=== PATIENT | female | born 1980 | race Caucasian/White ===

== ENCOUNTER → 2020-01-05 11:23 | Outpatient (BNVA) | payer OTHER, MEDICAID, SELFPAY | PROVIDERS: Family Provider Internal Medicine; PCP Internal Medicine; Visit Provider Nurse Practitioner Family | DX: J01.00 Acute maxillary sinusitis, unspecified (principal); J02.0 Streptococcal pharyngitis | CPT/HCPCS: 87400; 87880 ==

== ENCOUNTER 2020-02-10 13:30 | Outpatient (CLI) | payer OTHER, MEDICAID, SELFPAY ==
--- NOTE | 2020-02-10 13:45 | XR_ITS ---
WS: [id number] ANKLE RIGHT TECHNIQUE: 3 views of the right ankle CLINICAL INFORMATION: RIGHT ANKLE PAIN COMPARISON: None. FINDINGS: Normal ankle mortise. Talar dome is normal. No visualized fractures. Normal medial and lateral malleo lenny. Moderate diffuse soft tissue edema. XR/XR ankle RT min 3V* [id number] IMPRESSION: Moderate diffuse soft tissue edema. Right ankle otherwise unremarkable. No acut e fractures.
== END 2020-02-10 13:31 | disposition home or self-care (01) ==
LOC: RADWPI 13:34
PROVIDERS: Family Provider Internal Medicine; PCP Internal Medicine; Visit Provider Nurse Practitioner Family
DX: M25.571 Pain in right ankle and joints of right foot (principal); R60.9 Edema, unspecified
CPT/HCPCS: 73610

== ENCOUNTER → 2020-07-27 13:47 | Outpatient (BNVA) | payer MEDICAID, SELFPAY | PROVIDERS: Family Provider Internal Medicine; PCP Internal Medicine; Referring Provider Internal Medicine; Visit Provider Internal Medicine | DX: E10.59 Type 1 diabetes mellitus with other circulatory complications (principal); E78.5 Hyperlipidemia, unspecified; E10.649 Type 1 diabetes mellitus with hypoglycemia without coma; E10.65 Type 1 diabetes mellitus with hyperglycemia | CPT/HCPCS: 99205 ==

== ENCOUNTER 2020-10-13 08:59 | Outpatient (CLI) | payer MEDICAID, SELFPAY ==
--- NOTE | 2020-10-13 09:02 | MM_ITS ---
WS: [id number] Exam: [place] [id number] Date/Time of Exam: 10/13/2020 9:03 AM Reason For Exam: SCREENING VIEWS: MLO and CC views both breasts. Comparison made with prior exam of 01/02/2018. Findings: There was no sign of mass, architectural distortion or suspicious calcification in either breast. Sc attered fibroglandular densities MM/[place] [id number] Impression: BI-RADS: 2-Benign FOLLOW-UP: 1 Year Follow-up This mammogram was also analyzed by the Computer Aided Detection System R2 Imag e Dirt Bike Mechanic.
== END 2020-10-13 09:00 | disposition home or self-care (01) ==
LOC: RADSHAW 09:01
PROVIDERS: PCP Internal Medicine; Visit Provider Internal Medicine
DX: Z12.31 Encounter for screening mammogram for malignant neoplasm of breast (principal)
CPT/HCPCS: 77067

== ENCOUNTER → 2020-10-21 13:50 | Outpatient (BNVA) | payer MEDICAID, SELFPAY | PROVIDERS: PCP Internal Medicine; Visit Provider Internal Medicine | DX: E10.59 Type 1 diabetes mellitus with other circulatory complications (principal); E10.649 Type 1 diabetes mellitus with hypoglycemia without coma; E10.65 Type 1 diabetes mellitus with hyperglycemia; E78.5 Hyperlipidemia, unspecified | CPT/HCPCS: 99214 ==

== ENCOUNTER → 2021-01-18 13:43 | Outpatient (BNVA) | payer MEDICAID, SELFPAY | PROVIDERS: PCP Internal Medicine; Visit Provider Internal Medicine | DX: E10.59 Type 1 diabetes mellitus with other circulatory complications (principal); I25.10 Atherosclerotic heart disease of native coronary artery without angina pectoris; E10.649 Type 1 diabetes mellitus with hypoglycemia without coma; E10.65 Type 1 diabetes mellitus with hyperglycemia; E78.5 Hyperlipidemia, unspecified | CPT/HCPCS: 99214 ==

== ENCOUNTER → 2021-08-24 13:57 | Outpatient (BNVA) | payer MEDICAID, SELFPAY | PROVIDERS: PCP Internal Medicine; Visit Provider Internal Medicine | DX: E10.65 Type 1 diabetes mellitus with hyperglycemia (principal); E10.59 Type 1 diabetes mellitus with other circulatory complications; E10.649 Type 1 diabetes mellitus with hypoglycemia without coma; E78.5 Hyperlipidemia, unspecified; I25.10 Atherosclerotic heart disease of native coronary artery without angina pectoris; Z79.4 Long term (current) use of insulin; Z87.891 Personal history of nicotine dependence | CPT/HCPCS: 99214 ==

== ENCOUNTER → 2021-12-01 14:12 | Outpatient (BNVA) | payer MEDICAID, SELFPAY | PROVIDERS: PCP Internal Medicine; Visit Provider Internal Medicine | DX: E10.65 Type 1 diabetes mellitus with hyperglycemia (principal); E10.59 Type 1 diabetes mellitus with other circulatory complications; E10.649 Type 1 diabetes mellitus with hypoglycemia without coma; E78.5 Hyperlipidemia, unspecified; Z79.4 Long term (current) use of insulin; Z87.891 Personal history of nicotine dependence | CPT/HCPCS: 99214 ==

== ENCOUNTER → 2022-02-06 14:20 | Outpatient (BNVA) | payer MEDICAID, SELFPAY | PROVIDERS: PCP Internal Medicine; Visit Provider Internal Medicine | DX: E10.649 Type 1 diabetes mellitus with hypoglycemia without coma (principal); E10.59 Type 1 diabetes mellitus with other circulatory complications; E10.65 Type 1 diabetes mellitus with hyperglycemia; I25.10 Atherosclerotic heart disease of native coronary artery without angina pectoris; E78.5 Hyperlipidemia, unspecified; Z79.4 Long term (current) use of insulin; Z87.891 Personal history of nicotine dependence | CPT/HCPCS: 99214 ==

== ENCOUNTER → 2022-06-29 12:54 | Outpatient (BNVA) | payer MEDICAID, SELFPAY | PROVIDERS: PCP Internal Medicine; Referring Provider Internal Medicine; Visit Provider Specialist | DX: G56.02 Carpal tunnel syndrome, left upper limb (principal); G56.22 Lesion of ulnar nerve, left upper limb | CPT/HCPCS: 95908; 95910 ==

== ENCOUNTER 2022-07-17 15:05 | Outpatient (CLI) | payer MEDICAID, SELFPAY ==
--- NOTE | 2022-07-17 15:13 | MM_ITS ---
WS: [id number] BILATERAL 3D TOMOSYNTHESIS DIGITAL SCREENING MAMMOGRAPHY WITH CAD CLINICAL INFORMATION: SCREENING HISTORY: Screening mammogram. No current complaints. COMPARISON: October 13, 2020 TECHNIQUE: Bilateral CC and MLO views. FINDINGS: Scattered fibroglandular densities bilaterally. No suspicious focal mass, asymmetry, calcifications, or architectural distortion. No evidence of malignancy. MM/[place] [id number] IMPRESSION: BI-RADS: 1-Negative FOLLOW UP: 1 Year Follow-up Recommend return to annual screening mammography.
== END 2022-07-17 15:06 | disposition home or self-care (01) ==
LOC: RAD 15:06
PROVIDERS: PCP Internal Medicine; Visit Provider Internal Medicine
DX: Z12.31 Encounter for screening mammogram for malignant neoplasm of breast (principal)
CPT/HCPCS: 77063; 77067

== ENCOUNTER → 2022-08-03 11:28 | Outpatient (BNVA) | payer MEDICAID, SELFPAY | PROVIDERS: PCP Internal Medicine; Referring Provider Internal Medicine; Visit Provider Specialist | DX: G58.7 Mononeuritis multiplex (principal); G56.22 Lesion of ulnar nerve, left upper limb; G56.02 Carpal tunnel syndrome, left upper limb; E10.41 Type 1 diabetes mellitus with diabetic mononeuropathy; Z79.4 Long term (current) use of insulin | CPT/HCPCS: 95860; 99204 ==

== ENCOUNTER 2022-08-10 13:28 | Outpatient (CLI) | payer MEDICAID, SELFPAY ==
--- NOTE | 2022-08-10 13:38 | MR_ITS ---
WS: [id number] MRI CERVICAL SPINE NONCONTRAST TECHNIQUE: Sagittal T1, T2 and STIR imaging. Axial T2, gradient, and fiesta imaging. CLINICAL INFORMATION: HAND WEAKNESS, LEFT COMPARISON: None. FINDINGS: Straightening of the normal cervical lordosis. Mild disc bulging C4-C5, C5-C6, and C6-C7. Cord signal is normal. Small central protrusion upper thoracic spine at T1-T2. C2-C3: Normal. C3-C4: No significant disc bulging. Mild facet arthropathy. Spinal canal and foramen are patent. C4-C5: Mild disc osteophyte complex with endplate ridging. Mild facet arthropathy. Mild LEFT and no s ignificant RIGHT foraminal narrowing. C5-C6: Central LEFT pericentral disc osteophyte protrusion. Indentation LEFT ventral cervical cord wi th mild to moderate central canal stenosis. Moderate LEFT bony foraminal narrowing. RIGHT foramen is patent. Moderate facet arthropathy. C6-C7: Shallow central protrusion with slight contact of the cervical cord. Mild central canal stenos is. Moderate LEFT foraminal narrowing. Mild facet arthropathy. C7-T1: Osteophytic ridging with mild LEFT bony foraminal narrowing. Spinal canal is patent. T1-T2: Tiny LEFT pericentral protrusion. Spinal canal is patent. Mild LEFT bony foraminal narrowing. Visualized brain stem structures: Normal. Prevertebral soft tissues: Normal. MR/MR cervical spin wo con* [id number] IMPRESSION: 1. Straightening of the normal cervical lordosis. Cord signal is normal. 2. LEFT pericentral disc osteophyte protrusion C5-C6 with indentation LEFT nicko tral cervical cord. Mild to moderate central canal stenosis at this level. 3. Moderate LEFT C5-C6 bony foraminal narrowing with encroachment on the exiti ng LEFT C6 nerve root. 4. Shallow central protrusion C6-C7 with mild central canal stenosis and sligh t contact of the cervical cord. Moderate LEFT C6-C7 bony foraminal narrowing. 5. Moderate facet arthropathy C4-C5 C5-C6.
== END 2022-08-10 13:29 | disposition home or self-care (01) ==
LOC: RAD 13:29
PROVIDERS: PCP Internal Medicine; Visit Provider Internal Medicine
DX: R29.898 Other symptoms and signs involving the musculoskeletal system (principal); M47.812 Spondylosis without myelopathy or radiculopathy, cervical region; M50.223 Other cervical disc displacement at C6-C7 level; M25.78 Osteophyte, vertebrae
CPT/HCPCS: 72141

== ENCOUNTER 2022-08-21 15:43 | Outpatient (CLI) | payer MEDICAID, SELFPAY ==
--- NOTE | 2022-08-21 15:53 | XR_ITS ---
WS: [id number] Chest 2 views, 08/21/2022 Clinical Data: PNEUMONIA,BACTERIAL Comparison: Portable chest, 08/23/2018. Findings: No nodules, masses or effusions are seen. The heart is normal. The pulmonary vascularity is not increased. No pneumonia or pneumothorax is seen. XR/XR chest 2V* [id number] Impression: Negative chest.
== END 2022-08-21 15:44 | disposition home or self-care (01) ==
PROVIDERS: PCP Internal Medicine; Visit Provider Internal Medicine
DX: J15.9 Unspecified bacterial pneumonia (principal)
CPT/HCPCS: 71046

== ENCOUNTER → 2022-09-14 08:47 | Outpatient (BNVA) | payer MEDICAID, SELFPAY | PROVIDERS: PCP Internal Medicine; Referring Provider Specialist; Visit Provider Specialist | DX: G56.01 Carpal tunnel syndrome, right upper limb (principal) | CPT/HCPCS: 95908; 95909 ==

== ENCOUNTER 2022-10-19 15:04 | Outpatient (CLI) | payer MEDICAID, SELFPAY ==
--- NOTE | 2022-10-19 | MR_ITS ---
WS: [id number] MRI THORACIC SPINE WITHOUT CONTRAST TECHNIQUE: Sagittal T1, T2 and STIR imaging. Axial T2 imaging. Noncontrast imaging obtained. CLINICAL INFORMATION: BACK PAIN COMPARISON: None. FINDINGS: Mild thoracic kyphosis. No acute compression. No high-grade central canal stenosis. Tiny central prot rusions in the upper thoracic spine T3-T4, T4-T5, T6-T7 and T7-T8. No significant central canal steno sis. Mild facet arthropathy in the lower thoracic spine. Adrenal glands are normal. Normal caliber thoracic aorta. Normal paravertebral soft tissues. MR/MR thoracic spin wo con* [id number] IMPRESSION: 1. Mild thoracic kyphosis. No acute compression. No high-grade central canal s tenosis. 2. Cord signal is normal. 3. Small shallow disc protrusions in the upper thoracic spine with slight effa cement of ventral thecal sac. No significant central canal stenosis. This is mo st prominent at T3-T4, T4-T5, T6-T7 and T7-T8 4. Mild facet arthropathy lower thoracic spine. 5. No other acute findings.
== END 2022-10-19 15:05 | disposition home or self-care (01) ==
LOC: RAD 15:08
PROVIDERS: PCP Internal Medicine; Visit Provider Internal Medicine
DX: R29.898 Other symptoms and signs involving the musculoskeletal system (principal); M51.24 Other intervertebral disc displacement, thoracic region; M47.814 Spondylosis without myelopathy or radiculopathy, thoracic region
CPT/HCPCS: 72146

== ENCOUNTER → 2022-12-14 13:56 | Outpatient (BNVA) | payer MEDICAID, SELFPAY | PROVIDERS: PCP Internal Medicine; Visit Provider Internal Medicine | DX: E10.59 Type 1 diabetes mellitus with other circulatory complications (principal); E10.65 Type 1 diabetes mellitus with hyperglycemia; E10.649 Type 1 diabetes mellitus with hypoglycemia without coma; E78.5 Hyperlipidemia, unspecified; Z79.4 Long term (current) use of insulin | CPT/HCPCS: 99214 ==

== ENCOUNTER → 2022-12-19 13:01 | Outpatient (BNVA) | payer MEDICAID, SELFPAY | PROVIDERS: PCP Internal Medicine; Visit Provider Internal Medicine Cardiovascular Disease | DX: I25.10 Atherosclerotic heart disease of native coronary artery without angina pectoris (principal); E10.59 Type 1 diabetes mellitus with other circulatory complications; M32.9 Systemic lupus erythematosus, unspecified; E78.5 Hyperlipidemia, unspecified; I25.2 Old myocardial infarction; Z79.82 Long term (current) use of aspirin | CPT/HCPCS: 99214 ==

== ENCOUNTER 2023-01-26 06:59 | Outpatient (CLI) | payer MEDICAID, SELFPAY ==
--- NOTE | 2023-01-26 | ECG_ITS ---
[facility] Test Date: 2023-01-26 Pat Name: Christen French Department: Room: Gender: Female Print Finisher: : 1980 Requested By: Sridhar Orosco Order Number: [id number] Navneet MD: Kyle Duran M.D. Interpretive Statements NAME OF STUDY: LEXISCAN SESTAMIBI STRESS TEST INDICATION: [Chest Pain, hx of mi, ] Procedure: At the baseline, the blood pressure was 107/81 mmHg with a heart rate of 64 bpm. The electrocardiogram showed normal sinus rhythm, normal axis with normal ST and T's. The Lexiscan was infused over a period of 20 seconds. A total of 0.4 mg of Lexiscan was infused. The stress phase was continued for a total of 5 minutes. Heart rate was at the end of stress phase was 88 bpm and a blood pressure of 123/83 mmHg. The EKG at the peak infusion revealed normal sinus rhythm with no significant ST-T wave changes. Sestamibi was injected 20 seconds after the Lexiscan infusion. Blood pressure at the end of recovery phase was 141/74 mmHg with a heart rate of 88 bpm. Conclusion: 1. Normal EKG response to Lexiscan infusion 2. No Lexiscan induced chest pain or cardiac arrhythmia. 3. Normal blood pressure and heart rate response. 4. Sestamibi/sestamibi perfusion scan pending; see separate report. Electronically Signed On 01-27-2023 13:09:28 CDT by Kyle Duran M.D. [id number]
[2023-01-26 07:27] VITALS: BMI 33.3
--- NOTE | 2023-01-26 07:30 | NMCV_ITS ---
NM irma perf SPECT r/s* [id number] Christen French Age: 42 Gender: F : 1980 Exam Date: 01/26/2023 07:40 Ordering Phys: Sridhar Orosco MD ([email or web address]) Technologist: SALLY Gary Exam Location: [facility] Indications: Chest pain STRESS TEST Please see separate stress test report in [facility] for full findings IMAGE PROTOCOL Rest/Stress 1 Lexiscan Day Radiopharmaceutical Dose (mCi) Administration Site Administered by Rest: Tc-99m 10.8 IV SALLY Gary Sestamibi Stress:Tc-99m 32.9 IV SALLY Gary Sestamirenee Rest: 26-Jan-2023 60 Discovery 630 Stress: 26-Jan-2023 30 Discovery 630 0.4mg Lexiscan. Images obtained in supine and prone position. SPECT RESULTS Technical Quality: Good Raw Data Analysis: Breast attenuation, Adequate Image Corrections: No attenuation or motion correction applied Summed Stress Score: 0 Summed Rest Score: 0 Summed Difference Score: 0 PERFUSION FINDINGS SPECT images demonstrate homogeneous tracer distribution throughout the myocardium. FUNCTIONAL RESULTS (calculated via Gated SPECT) Stress Image LV EF (%): 77 Stress EDV (mL):73 TID: 1.07 Stress ESV (mL):17 FUNCTIONAL FINDINGS: There is normal left ventricular systolic function. IMPRESSIONS 1. Normal myocardial perfusion imaging with no evidence of ischemia. 2. LV systolic function is normal. Kyle Duran MD (Electronically Signed) Final Date: 26 January 2023 10:05 S
[2023-01-26] MEDS: regadenoson 0.4 Mg/5 ml Syringe IVP (08:40)
[2023-01-26 10:18] VITALS: BP 123/82; PULSE 79
== END 2023-01-26 07:00 | disposition home or self-care (01) ==
LOC: CDL 07:00
PROVIDERS: PCP Internal Medicine; Visit Provider Internal Medicine Cardiovascular Disease
DX: I25.10 Atherosclerotic heart disease of native coronary artery without angina pectoris (principal)
CPT/HCPCS: 36415; 78452; 93017; 96374; A9500; J2785

== ENCOUNTER 2023-07-26 14:16 | Outpatient (CLI) | payer MEDICAID, SELFPAY ==
--- NOTE | 2023-07-26 14:30 | MM_ITS ---
WS: [id number] SCREENING DIGITAL TOMOSYNTHESIS MAMMOGRAM WITH CAD HISTORY: SCREENING COMPARISON: 07/17/2022 and 10/13/2020 Bilateral CC and MLO with tomosynthesis views submitted. Synthetic mammography reviewed. Computer aid ed detection analyzed. Breast composition: There are scattered areas of fibroglandular density. No suspicious masses, microc alcifications or architectural distortion. IMPRESSION: MM/[place] [id number] BI-RADS: 1-Negative FOLLOW UP: 1 Year Follow-up
== END 2023-07-26 14:17 | disposition home or self-care (01) ==
LOC: MOBLMAM 14:19
PROVIDERS: PCP Internal Medicine; Visit Provider Internal Medicine
DX: Z12.31 Encounter for screening mammogram for malignant neoplasm of breast (principal)
CPT/HCPCS: 77063; 77067

== ENCOUNTER 2024-07-31 14:21 | Outpatient (CLI) | payer MEDICAID, SELFPAY ==
--- NOTE | 2024-07-31 14:20 | MM_ITS ---
WS: [id number] SCREENING DIGITAL TOMOSYNTHESIS MAMMOGRAM WITH CAD HISTORY: SCREENING COMPARISON: 07/26/2023, 07/17/2022 and 10/13/2020 Bilateral CC and MLO with tomosynthesis views submitted. Synthetic mammography reviewed. Computer aid ed detection analyzed. Breast composition: There are scattered areas of fibroglandular density. No suspicious masses, microc alcifications or architectural distortion. MM/MM scr BI tomosynthesis [id number] IMPRESSION: BI-RADS: 1 - Negative. FOLLOW UP: 1 Year Follow-up
== END 2024-07-31 14:22 | disposition home or self-care (01) ==
LOC: MOBLMAM 14:22
PROVIDERS: PCP Internal Medicine; Visit Provider Internal Medicine
DX: Z12.31 Encounter for screening mammogram for malignant neoplasm of breast (principal); R92.323 Mammographic fibroglandular density, bilateral breasts
CPT/HCPCS: 77063; 77067

== ENCOUNTER 2024-08-14 14:56 | Outpatient (CLI) | payer MEDICAID, SELFPAY ==
--- NOTE | 2024-08-14 15:05 | MR_ITS ---
WS: [id number] MRI CERVICAL SPINE NONCONTRAST TECHNIQUE: Sagittal T1, T2 and STIR imaging. Axial T2, gradient, and fiesta imaging. CLINICAL INFORMATION: DEGENERATIVE DISC DISEASE COMPARISON: MRI 2021 FINDINGS: Straightening of the normal cervical lordosis. Shallow central protrusions C4-C5 C5-C6 and C6-C7. Mil d central canal stenosis at C4-C5. Mild to moderate central canal stenosis C5-C6 and mild C6-C7 with slight indentation on the cervical cord. C2-C3: Normal. C3-C4: Mild facet arthropathy. Spinal canal and foramen are patent. C4-C5: Disc osteophyte complex with endplate ridging. Mild bilateral bony foraminal narrowing. Mild f acet arthropathy. Mild central canal stenosis appears unchanged compared to previous C5-C6: Central and LEFT paracentral disc protrusion with indentation of the cervical cord. Disc has i nvoluted somewhat compared to previous. Moderate LEFT greater than RIGHT bony foraminal narrowing. Mi ld facet arthropathy. C6-C7: Shallow central disc protrusion with mild central canal stenosis is stable. Moderate LEFT bony foraminal narrowing. C7-T1: Spinal canal and foramen are patent. Partially visualized LEFT paracentral protrusion T1-T2 appears stable. Shallow central protrusions a t T2-3 and T3-4. Visualized brain stem structures: Normal. Prevertebral soft tissues: Normal. MR/MR cervical spin wo con* [id number] IMPRESSION: 1. Mild central canal stenosis C4-5 appears stable. 2. Central and LEFT paracentral disc protrusion C5-C6 has involuted slightly c ompared to previous with persistent mild to moderate central canal stenosis. 3. Mild central canal stenosis C6-C7 with a shallow central protrusion is stab le. 4. Cord signal is normal. 5. Moderate bilateral bony foraminal narrowing C5-C6 and LEFT C6-C7.
== END 2024-08-14 14:57 | disposition home or self-care (01) ==
LOC: RAD 14:57
PROVIDERS: PCP Internal Medicine; Visit Provider Internal Medicine
DX: M50.30 Other cervical disc degeneration, unspecified cervical region (principal); M25.78 Osteophyte, vertebrae; M50.20 Other cervical disc displacement, unspecified cervical region; M99.61 Osseous and subluxation stenosis of intervertebral foramina of cervical region
CPT/HCPCS: 72141

== ENCOUNTER 2024-09-19 07:23 | Outpatient (CLI) | payer OTHER, MEDICAID, SELFPAY ==
[2024-09-19 08:06] VITALS: BMI 34.3
--- NOTE | 2024-09-19 08:12 | ECG_ITS ---
[facility] Test Date: 2024-09-19 Pat Name: Christen French Department: Room: Gender: Female Appliquer: : 1980 Requested By: Cesia Oglesby Order Number: [id number] Navneet MD: Kyle Duran M.D. Interpretive Statements LEXISCAN SESTAMIBI STRESS TEST Procedure: At the baseline, the blood pressure was 103/70 mmHg with a heart rate of 71 bpm. The electrocardiogram showed normal sinus rhythm, normal axis with normal ST and T's. The Lexiscan was infused over a period of 20 seconds. A total of 0.4 mg of Lexiscan was infused. The stress phase was continued for a total of 5 minutes. Heart rate was at the end of stress phase was 89 bpm and a blood pressure of 101/66 mmHg. The EKG at the peak infusion revealed normal sinus rhythm with no significant ST-T wave changes. Sestamibi was injected 20 seconds after the Lexiscan infusion. Blood pressure at the end of recovery phase was 104/64 mmHg with a heart rate of 86 bpm. Conclusion: 1. Normal EKG response to Lexiscan infusion 2. No Lexiscan induced chest pain or cardiac arrhythmia. 3. Normal blood pressure and heart rate response. 4. Sestamibi/sestamibi perfusion scan pending; see separate report. Electronically Signed On 09-22-2024 11:58:14 LABORATORY ANIMAL CARE VETERINARIAN by Kyle Duran M.D. [id number]
--- NOTE | 2024-09-19 08:12 | NMCV_ITS ---
NM irma perf SPECT r/s* [id number] Christen French Age: 44 Gender: F : 1980 Exam Date: 09/19/2024 08:50 Ordering Phys: Cesia Rucker MD Technologist: SALLY Chong Exam Location: [facility] Indications: CP STRESS TEST [facility] IMAGE PROTOCOL Rest/Stress 1 Lexiscan Day Radiopharmaceutical Dose (mCi) Administration Site Administered by Rest: Tc-99m 10.8 IV Ailyn Pardo, SENIOR TELLER Sestamibi Stress:Tc-99m 32.9 IV Ailyn Ortizgle, SENIOR TELLER Sestamibi Rest: 19-Sep-2024 60 Discovery 630 Stress: 19-Sep-2024 30 Discovery 630 0.4mg Lexiscan. Images obtained in supine and prone position. SPECT RESULTS Technical Quality: Good Raw Data Analysis: Normal Image Corrections: No attenuation or motion correction applied Summed Stress Score: 0 Summed Rest Score: 0 Summed Difference Score: 0 PERFUSION FINDINGS SPECT images demonstrate homogeneous tracer distribution throughout the myocardium. FUNCTIONAL RESULTS (calculated via Gated SPECT) Stress Image LV EF (%): 77 Stress EDV (mL):73 TID: 0.98 Stress ESV (mL):17 FUNCTIONAL FINDINGS: There is normal left ventricular systolic function. IMPRESSIONS 1. Normal myocardial perfusion imaging with no evidence of ischemia. 2. LV systolic function is normal Kyle Duran MD (Electronically Signed) Final Date: 19 September 2024 10:45 S
[2024-09-19] MEDS: regadenoson 0.4 Mg/5 ml Syringe IVP (09:16)
[2024-09-19 09:57] VITALS: BP 104/54; PULSE 84
== END 2024-09-19 07:24 | disposition home or self-care (01) ==
LOC: CDL 07:24
PROVIDERS: PCP Internal Medicine; Visit Provider Internal Medicine
DX: I25.810 Atherosclerosis of coronary artery bypass graft(s) without angina pectoris (principal)
CPT/HCPCS: 36415; 78452; 93017; 96374; A9500; J2785

== ENCOUNTER 2025-02-10 14:04 | Outpatient (CLI) | payer OTHER, MEDICAID, SELFPAY ==
--- NOTE | 2025-02-10 14:08 | US_ITS ---
WS: [id number] US transvaginal [id number] HISTORY: Menorrhagia COMPARISON: None available. Uterus: 8.4 cm x 5.9 cm x 4.6 cm. Normal size anteverted uterus. No fibroid or mass. Endometrium: 1.4 cm. Endometrium it is measuring top normal size. There is minimal interruption of the junctional zone. No adenomyosis identified. Right ovary: 3.5 cm x 2.7 cm x 2.2 cm. Collapsing corpus luteal cyst associated with the RIGHT ovary. There is a thick-walled complex cyst. Adjacent and inseparable from the ovary is an additional cyst measuring 1.6 x 1.7 x 1.6 cm. This may be a small parovarian cyst. Left ovary: Not identified. No free fluid in the cul-de-sac. US/US transvaginal [id number] IMPRESSION: 1. Endometrium is top normal size at 1.4 cm. No mass or increased vascularity identified. 2. Collapsed corpus luteal cyst associated with the RIGHT ovary. There is an a dditional smaller cyst medial to the ovary which may be a paraovarian cyst. 3. LEFT ovary not identified.
== END 2025-02-10 14:05 | disposition home or self-care (01) ==
LOC: RAD 14:05
PROVIDERS: PCP Internal Medicine; Visit Provider Internal Medicine
DX: N92.0 Excessive and frequent menstruation with regular cycle (principal); N83.11 Corpus luteum cyst of right ovary; N83.201 Unspecified ovarian cyst, right side
CPT/HCPCS: 76830

== ENCOUNTER → 2025-04-01 10:42 | Outpatient (BNVA) | payer OTHER, MEDICAID, SELFPAY | PROVIDERS: PCP Internal Medicine; Visit Provider Nurse Practitioner Women's Health | DX: R10.2 Pelvic and perineal pain (principal) | CPT/HCPCS: 76830 ==

== ENCOUNTER → 2025-04-09 09:13 | Outpatient (BNVA) | payer OTHER, MEDICAID, SELFPAY | PROVIDERS: PCP Internal Medicine; Visit Provider Nurse Practitioner Women's Health | DX: Z01.419 Encounter for gynecological examination (general) (routine) without abnormal findings (principal); R53.83 Other fatigue | CPT/HCPCS: 80053; 82306; 84443; 85025 ==

== ENCOUNTER 2025-07-13 06:04 | Emergency (ER) | payer BC, MEDICAID, SELFPAY ==
[2025-07-13] VITALS (9 sets, daily range): BP systolic 101–131; BP diastolic 75–99; PULSE 60–98; RESP 16–26; TEMP 36.7; O2SAT 95–100; BMI 35.4
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
--- OUTSIDE RECORDS SUMMARY | 2025-07-13 06:08 | XMS_ITS | Clinical Summary ---
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
--- OUTSIDE RECORDS SUMMARY | 2025-07-13 06:08 | XMS_ITS | Clinical Summary ---
Author Organization [facility] Address [address] 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
--- OUTSIDE RECORDS SUMMARY | 2025-07-13 06:08 | XMS_ITS | Encounter Summary ---
Author Organization [facility] Address [address] [place] [address] Care Team Providers Care Decorating Machine Tender Name Role Phone Unavailable Primary Care Provider Unavailabl e Encounter Details Date Type Department Care Team (Late st Contact Info) Description 12/01/2004 Outpatient Historical [facility] Non-Staff, Physician NO ADDRESS ON FILE Social History Tobacco Use Types Packs/Day Years Used Date Smoking Tobacco: Never Assessed Comments Unknown Sex and Gender Information Value Date Recorded Sex Assigned at Not on file Legal Sex Female 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 LIFT MANAGER Gender Identity Not on file Sexual Orientation Not on file documented as of this encounter Plan of Treatment Not on file documented as of this encounter Procedures Procedure Name Priority Date/Time Associated Diagnosis Comments HAPTOGLOBIN Routine 12/01/2004 8:11 AM LIFT MANAGER documented in this encounter Results * HAPTOGLOBIN (12/01/2004 8:11 AM LIFT MANAGER) HAPTOGLOBIN 52.8 30.0 - 200.0 mg/dL INTERFACE SYSTEM 12/01/2004 8:11 AM LIFT MANAGER us Historical Provider CHEMISTRY ORDERABLES Final R esult INTERFACE SYSTEM Refer to clinic/hospital department documented in this encounter Visit Diagnoses Not on filedocumented in this encounter
--- OUTSIDE RECORDS SUMMARY | 2025-07-13 06:09 | XMS_ITS | Encounter Summary ---
Author Organization [facility] Address [address] [place] [address] Care Team Providers Care Medical Communication Specialist Name Role Phone Unavailable Primary Care Provider Unavailabl e Encounter Details Date Type Department Care Team (Late st Contact Info) Description 11/30/2004 Outpatient Historical HIS [facility] Non-Staff, Physician NO ADDRESS ON FILE Social History Tobacco Use Types Packs/Day Years Used Date Smoking Tobacco: Never Assessed Comments Unknown Sex and Gender Information Value Date Recorded Sex Assigned at Not on file Legal 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 DATABASE SPECIALIST Gender Identity Not on file Sexual Orientation Not on file documented as of this encounter Plan of Treatment Not on file documented as of this encounter Procedures Procedure Name Priority Date/Time Associated Diagnosis Comments HAPTOGLOBIN Routine 11/30/2004 8:37 AM INTERNET DATABASE SPECIALIST documented in this encounter Results * (ABNORMAL) HAPTOGLOBIN (11/30/2004 8:37 AM INTERNET DATABASE SPECIALIST) HAPTOGLOBIN 7.2(L) 30.0 - 200.0 mg/dL INTERFACE SYSTEM 11/30/2004 8:37 AM INTERNET DATABASE SPECIALIST us Historical Provider CHEMISTRY ORDERABLES Final R esult INTERFACE SYSTEM Refer to clinic/hospital department documented in this encounter Visit Diagnoses Not on filedocumented in this encounter
--- NOTE | 2025-07-13 06:10 | ECG_ITS ---
[facility] Date: 2025-07-13 Pat Name: Christen French Department: Room: Gender: Female Hole Puncher Strap: : 1980 Requested By: Arnold Esrtella Order Number: [id number] Navneet MD: Min Hernandez M.D. Measurements Intervals [place] Rate: 80 P: 50 NH: 164 QRS: 36 QRSD: 68 T: 51 QT: 355 QTc: 411 Interpretive Statements SINUS RHYTHM LOW QRS VOLTAGE IN PRECORDIAL LEADS [QRS DEFLECTION < 1.0 mV IN CHEST LEADS] SEPTAL MYOCARDIAL INFARCTION , OF INDETERMINATE AGE [40+ ms Q WAVE IN V1/V2] Compared to ECG 01/15/2019 23:32:48 NO SIGNIFICANT CHANGE Electronically Signed On 07-13-2025 12:59:15 CDT by Min Hernandez M.D. [email or web address]
--- NOTE | 2025-07-13 06:16 | XRR_ITS ---
PROCEDURE INFORMATION: Exam: XR Chest Exam date and time: 07/13/2025 6:32 AM Age: 45 years old Clinical indication: Chest pressure and sternal or substernal pain; Prior surgery; Surgery date: 6+ months; Surgery type: Cardiac stents; Additional info: Cp TECHNIQUE: Imaging protocol: Radiologic exam of the chest. Views: 1 view. COMPARISON: CR XR chest 2V* [id number] 08/21/2022 3:54 PM FINDINGS: Lungs: Unremarkable. No consolidation. Pleural spaces: Unremarkable. No pleural effusion. No pneumothorax. Heart/Mediastinum: Unremarkable. No cardiomegaly. Bones/joints: Unremarkable. XR/XR chest 1V portable [id number] IMPRESSION: No acute findings.
--- NOTE | 2025-07-13 06:31 | W.ED.CHESTPA ---
HPI - Chest Pain General: Chief Complaint: Chest Pain Stated Complaint: sob and pressure in the middle of chest lighthead Time Seen by Provider: 07/13/25 06:08 History of Present Illness: 45-year-old female with a known history of coronary disease previous STEMI resulting in a stent in her LAD. She presents emergency room with complaint of chest heaviness and pressure sensation of not being able to take a full breath that began yesterday she took 1 nitro she was able to sleep but still had that sensation this morning she also noticed when she stands she is lightheaded and dizzy. She is a former smoker and she is also an insulin-dependent diabetic. Her STEMI was in August 2018. At the time of the heart cath in August 2018 her left main circumflex and RCA all had no sign of disease there was single-vessel disease in the proximal LAD which was stented. Since that time she has had Lexiscan sestamibi stress test in December and September 2024 that were normal. Prior to chest discomfort she reported yesterday she is intermittently had chest pain over the last several years had a stress test to evaluate at that time but more recently has not had other episodes of chest pain has not been using nitro on any other occasions. Associated symptoms: Reports dyspnea; Deny abdominal pain or fever(s) Related Data Home Medications ?Medication ?Instructions ?Recorded ?Confirmed pantoprazole 20 mg tablet,delayed 20 mg PO DAILY 01/05/20 07/13/25 release (Protonix) flash glucose sensor (FreeStyle 02/06/22 07/13/25 Brian 2 Sensor kit) cetirizine 10 mg tablet 10 mg PO DAILY 12/19/22 07/13/25 furosemide 40 mg tablet 40 mg PO DAILY PRN edema 12/19/22 07/13/25 insulin degludec 100 unit/mL (3 28 unit SUBCUT QAM 12/19/22 07/13/25 mL) subcutaneous pen (Tresiba FlexTouch U-100 insulin) magnesium oxide 400 mg PO DAILY 12/19/22 07/13/25 aspirin 81 mg tablet,delayed 81 mg PO DAILY 07/13/25 07/13/25 release rosuvastatin 20 mg tablet 20 mg PO DAILY 07/13/25 07/13/25 Previous Rx's ?Medication ?Instructions ?Recorded nitroglycerin 0.4 mg sublingual 0.4 mg sublingual Q5M PRN chest 11/09/21 tablet (Nitrostat) pain #30 tabs Humalog U-100 Insulin 100 unit/mL See Rx Instructions SUBCUT TID 90 06/01/22 subcutaneous solution (insulin days #90 mL lispro) metoprolol tartrate 25 mg tablet 6.25 mg (1/4 x 25 mg) PO BID #45 05/30/23 tabs Allergies Allergy/AdvReac Type Severity Reaction Status Date / Time lovastatin Allergy Unknown Verified 04/09/25 07:47 Review of Systems Const: Denies: fever(s) or chills Card: Reports: chest pain Resp: Reports: dyspnea GI: Denies: abdominal pain : Denies: dysuria, urinary frequency or urinary urgency Musc: Denies: neck pain or back pain Skin/Breast: Denies: rash PFSH ED PFSH: Medical History delivery delivered CAD (coronary artery disease), [place] coronary artery STEMI (ST elevation myocardial infarction) Lupus Diabetes Dyslipidemia Surgical History H/O heart artery stent Family History Father COPD (chronic obstructive pulmonary disease) Congestive heart failure (CHF) Mother Cancer stomach/intestine, lung, liver, spine Breast cancer Colon cancer Uterine cancer Stroke Hypertension Ovarian cancer Diabetes Denies family history of Heart disease Thyroid disease Social History Smoking and tobacco/nicotine status: former use of tobacco/nicotine Alcohol intake: never Substance/Drug Use: never Physical Exam Const: GENERAL APPEARANCE: cooperative ORIENTATION/CONSCIOUSNESS: Yes awake, Yes oriented to person, Yes oriented to place and Yes oriented to time HENMT: COMMON NORMALS: normocephalic, atraumatic and hearing grossly normal bilaterally HEAD & SCALP: normocephalic and atraumatic Resp: COMMON NORMALS: normal respiratory effort, No retractions, No use of accessory muscles and clear to auscultation bilaterally AUSCULTATION: clear to auscultation bilaterally Cardio: COMMON NORMALS: regular rate, regular rhythm and No murmurs present (Cardio) RATE: regular rate RHYTHM: regular rhythm GI: COMMON NORMALS: Soft to palpation and No hepatosplenomegaly present AUSCULTATION: Yes normoactive bowel sounds PALPATION: Yes Soft to palpation, No Tenderness to palpation present (GI), No Guarding due to palpation present (GI) and Yes No hepatosplenomegaly present Extremity: COMMON NORMALS: normal to inspection, capillary refill normal, no clubbing, cyanosis or edema, no calf tenderness and no pedal edema Neuro: SENSORIUM/ORIENTATION: Yes oriented to person, Yes oriented to place and Yes oriented to time Skin: COMMON NORMALS: no rashes or lesions noted GENERAL SKIN EXAM: no rashes or lesions noted Course Vital Signs: Vital signs: Vital Signs Temperature 98.1 F 07/13/25 06:07 Pulse Rate 68 07/13/25 09:41 Respiratory Rate 18 07/13/25 09:41 Blood Pressure 112/78 07/13/25 09:41 Pulse Oximetry 97 07/13/25 09:41 Oxygen Delivery Me thod Room Air 07/13/25 06:07 MDM - Chest Pain Medical Decision Making Cardiac enzymes unremarkable EKG did not show any acute changes. Cardiac stress test on January 2023 and another on September 2024 were both negative. Previous angiography report reviewed had single-vessel disease which was stented all of the vessels were normal. No further chest pain at this time will discharge home follow-up with cardiology Medical Records I reviewed the patient's medical records. Lab Data I reviewed the patient's lab results. 07/13/25 06:27 07/13/25 06:27 Radiology Impressions Chest X-Ray 07/13/25 06:16 IMPRESSION: No acute findings. Laboratory Results WBC 10.31 10^3/uL (3.29-11.43) 07/13/25 06:27 RBC 4.28 10^6/uL (3.85-5.65) 07/13/25 06:27 Hgb 12.90 g/dL (11.27-16.99) 07/13/25 06:27 Hct 37.5 % (36-47) 07/13/25 06:27 MCV 87.6 fl (85-98) 07/13/25 06:27 MCH 30.1 pg (27-33) 07/13/25 06:27 MCHC 34.4 g/dL (30-55) 07/13/25 06: RDW 12.1 % (12.1-15.1) 07/13/25 06:27 Plt Count 353 10^3/cmm (157-399) 07/13/25 06:27 MPV 10.8 fL (7.4-10.4) H 07/13/25 06:27 Neut % (Auto) 63.2 % 07/13/25 06: Lymph % (Auto) 27.1 % 07/13/25 06:27 Dane % (Auto) 8.5 % 07/13/25 06:27 Eos % (Auto) 0.7 % 07/13/25 06: Baso % (Auto) 0.3 % 07/13/25 06: Neut # (Auto) 6.52 10^3/uL (1.8-7.7) 07/13/25 06:27 Lymph # (Auto) 2.8 10^3/uL (0.8-4.8) 07/13/25 06:27 Dane # (Auto) 0.9 10^3/uL (0.2-0.9) 07/13/25 06:27 Eos # (Auto) 0.1 10^3/uL (0.0-0.8) 07/13/25 06:27 Baso # (Auto) 0.0 10^3/uL (0.0-0.1) 07/13/25 06:27 Nucleated RBC % (auto) 0 % 07/13/25 06: Nucleated RBCs # 0.0 /100WBC 07/13/25 06:27 Sodium 134 mmol/L (136-145) L 07/13/25 06:27 Potassium 4.6 mmol/L (3.5-5.1) 07/13/25 06:27 Chloride 98 mmol/L (98-107) 07/13/25 06:27 Carbon Dioxide 20 mmol/L (22-29) L 07/13/25 06:27 Anion Gap 20.6 (5-19) H 07/13/25 06:27 BUN 17 mg/dL (6-20) 07/13/25 06:27 Creatinine 0.9 mg/dL (0.5-0.9) 07/13/25 06:27 GFR Calculation 67.7 mL/min (90-130) L 07/13/25 06:27 Glucose 288 mg/dL (65-115) H 07/13/25 06:27 Calculated Osmolality 290 mOsm/kg (285-295) 07/13/25 06:27 Calcium 9.4 mg/dL (8.5-10.5) 07/13/25 06:27 Total Bilirubin 0.3 mg/dL (0.15-1.2) 07/13/25 06:27 AST 28 U/L (0-32) 07/13/25 06:27 ALT 26 U/L (0-33) 07/13/25 06:27 Alkaline Phosphatase 83 U/L (35-105) 07/13/25 06:27 Troponin T Baseline < 6 ng/L (0-10) 07/13/25 06:27 Troponin T 120 Minute 7.35 ng/L (0-10) 07/13/25 08:14 Delta Troponin T 1.91920 ABS# (0-10) 07/13/25 08:14 NT-Pro-B Natriuret Pep < 36 pg/mL (0-125) 07/13/25 06:27 Total Protein 8.2 g/dL (6.6-8.7) 07/13/25 06:27 Albumin 4.2 g/dL (3.5-5.2) 07/13/25 06:27 Globulin 4.0 g/dL (1.3-4.6) 07/13/25 06:27 HCG, Qual Negative (Negative) 07/13/25 06:27 All radiology interpretation(s) finalized by discharge EKG Data EKG 1: Interpretation: EKG 07/13/2025 6:10 AM sinus rhythm rate of 80 VT interval 164 QTc [address] elevation no ST depression or T wave inversion. Q waves in V1 and 2. Compared to EKG 01/15/2019 no significant change EKG 2: Interpretation: EKG 07/13/2025 sinus rhythm rate of 71 VT interval 159 QTc [address] changes noted. Compared to EKG done earlier today no significant change Discharge Plan Discharge Patient Disposition: Home Clinical Impression: Atypical chest pain Condition: Stable Prescriptions: No Action nitroglycerin [Nitrostat] 0.4 mg tablet, sublingual 0.4 mg sublingual Q5M PRN (Reason: chest pain) Qty: 30 2RF Rx Instructions: do not exceed 3 doses per episode pantoprazole [Protonix] 20 mg tablet,delayed release (DR/EC) 20 mg PO DAILY Tresiba FlexTouch U-100 100 unit/mL (3 mL) insulin pen 28 unit SUBCUT QAM furosemide 40 mg tablet 40 mg PO DAILY PRN (Reason: edema) cetirizine 10 mg tablet 10 mg PO DAILY magnesium oxide 400 mg magnesium tablet 400 mg PO DAILY (DME) FreeStyle Brian 2 Sensor Kit See Rx Instructions .Route Rx Instructions: As directed insulin lispro [Humalog U-100 Insulin] 100 unit/mL solution See Rx Instructions SUBCUT TID 90 Days Qty: 90 3RF Dose Instruction: INJECT SUBCUTANEOUSLY PER SLIDING SCALE THREE TIMES DAILY DIRECTED. MAX DAILY DOSE OF 100 UNITS PER DAY. Rx Instructions: INJECT SUBCUTANEOUSLY PER SLIDING SCALE THREE TIMES DAILY DIRECTED. MAX DAILY DOSE OF 100 UNITS PER DAY. subcutaneously three times daily. metoprolol tartrate 25 mg tablet 6.25 mg PO BID Qty: 45 1RF aspirin [Aspir-81] 81 mg Tablet,Delayed Release (Dr/Ec) 81 mg PO DAILY rosuvastatin 20 mg tablet 20 mg PO DAILY Discharge Orders: Discharge ED (Routine); Ordered 07/13/25 Ordered By: Arnold Head Referrals: Cesia Rucker MD [Primary Care Provider, Internal Medicine] Discharge Diet: Usual diet Discharge Activity: Resume usual activity Patient Instructions: Opioid Safety, Pain Management, Patient Portal & Tomas Instructions Activity Restrictions/Additional Instructions: Thank you for choosing [facility] for your healthcare needs today. It is very important that you follow up as instructed or that you return to the Emergency Department should you have concerns or if your condition changes or worsens in any way. Emergency department visits are focused on emergent conditions, in some cases you may require further evaluation on an outpatient basis. You were seen in the emergency room with complaint of chest pain your cardiac enzymes and EKGs were normal and there was no evidence of any acute changes at this time. Reviewed your previous stress test and angiogram that was done in 2018. At that time you had a stent placed all of your other coronary arteries were normal. The stress test that you had in December 2022 and September 2024 were also normal. Continue your current medications. dietary services manager will make arrangements for you to follow-up in the cardiology clinic (Please note that included in your discharge packet is information concerning opioid safety and pain management. This information is given to all patients were discharged from the ER regardless of their discharge diagnosis or the medicines they usually take or are prescribed.) Print Language: Bulgarian Coding Level of Care Code ED Washer Machine for Clarice Tierney
[2025-07-13 06:33] LABS: Hematocrit 37.5 % (36-47); Hemoglobin 12.90 g/dL (11.27-16.99); Mean Corpuscular HGB Conc 34.4 g/dL (30-55); Mean Corpuscular Hemoglobin 30.1 pg (27-33); Mean Corpuscular Volume 87.6 fl (85-98); Nucleated Red Blood Cells % 0 %; Platelet Count 353 10^3/cmm (157-399); Red Blood Count 4.28 10^6/uL (3.85-5.65); White Blood Count 10.31 10^3/uL (3.29-11.43)
[2025-07-13 06:56] LABS: HCG, Serum Qual Negative (Negative); Troponin(5th) Baseline < 6 ng/L (0-10)
[2025-07-13 07:12] LABS: Alanine Aminotransferase 26 U/L (0-33); Albumin Level 4.2 g/dL (3.5-5.2); Alkaline Phosphatase 83 U/L (35-105); Anion Gap 20.6 (5-19); Aspartate Amino Transferase 28 U/L (0-32); Blood Urea Nitrogen 17 mg/dL (6-20); Calcium 9.4 mg/dL (8.5-10.5); Carbon Dioxide 20 mmol/L (22-29); Chloride 98 mmol/L (98-107); Creatinine Clr Calc Pharmacy 84.3977; Globulin 4.0 g/dL (1.3-4.6); Glucose 288 mg/dL (65-115); NT Pro B Type Natriuretic Pept < 36 pg/mL (0-125); Osmolality Calculated 290 mOsm/kg (285-295); Potassium 4.6 mmol/L (3.5-5.1); Sodium 134 mmol/L (136-145); Total Protein 8.2 g/dL (6.6-8.7)
--- NOTE | 2025-07-13 07:46 | PC.PHAR ---
Pt takes Rosuvastatin-last verified in 2019 for 40mg take 2 tablets daily. Current active rx is for Rosuvastatin 20mg daily last fill 06/30/25 90ds.
--- NOTE | 2025-07-13 08:16 | ECG_ITS ---
[facility] Pat Name: Christen French Department: Room: Gender: Female Forepart Rasper: : 1980 Requested By: Reji Hou Order Number: [id number] Navneet MD: Cailin Chopra M.D. Measurements Intervals [place] Rate: 71 P: 47 UT: 159 QRS: 28 QRSD: 83 T: 47 QT: 385 QTc: 421 Interpretive Statements SINUS RHYTHM Compared to ECG 07/13/2025 06:10:33 Myocardial infarct finding no longer present Electronically Signed On 07-16-2025 23:34:10 CDT by Cailin Chopra M.D. [email or web address] [email or web address]
[2025-07-13 08:40] LABS: Troponin 5 2HR 7.35 ng/L (0-10); Troponin 5 2HR Delta 1.35001 ABS# (0-10)
--- NOTE | 2025-07-13 09:30 | DCPLANNER ---
messaged heart care for er f/u
--- NOTE | 2025-07-15 12:18 | DCPLANNER ---
Message sent to cardiology
== END 2025-07-13 09:41 | disposition home or self-care (01) ==
PROVIDERS: Emergency Medicine; Emergency Provider Family Medicine; PCP Internal Medicine
DX: R07.89 Other chest pain (principal); Z79.82 Long term (current) use of aspirin; Z79.84 Long term (current) use of oral hypoglycemic drugs; Z87.891 Personal history of nicotine dependence; E11.9 Type 2 diabetes mellitus without complications; I25.10 Atherosclerotic heart disease of native coronary artery without angina pectoris; E78.5 Hyperlipidemia, unspecified
CPT/HCPCS: 36415; 71045; 80053; 83880; 84484; 84703; 85025; 93005; 99285; J9999

== ENCOUNTER → 2025-07-18 17:00 | Outpatient (BNVA) | payer BC, MEDICAID, SELFPAY | PROVIDERS: PCP Internal Medicine; Visit Provider Emergency Medicine | DX: S82.451A Displaced comminuted fracture of shaft of right fibula, initial encounter for closed fracture (principal); M25.48 Effusion, other site | CPT/HCPCS: 73610 ==

== ENCOUNTER 2025-09-14 06:30 | Outpatient (RCR) | payer BC, MEDICAID, SELFPAY | END 2025-10-14 23:59 | disposition home or self-care (01) | LOC: SPT 06:30 | PROVIDERS: PCP Internal Medicine; Visit Provider Orthopaedic Surgery Orthopaedic Trauma | DX: S82.401D Unspecified fracture of shaft of right fibula, subsequent encounter for closed fracture with routine healing (principal); X58.XXXD Exposure to other specified factors, subsequent encounter | CPT/HCPCS: 97110; 97112; 97161 ==

== ENCOUNTER 2025-09-15 14:20 | Outpatient (CLI) | payer BC, MEDICAID, SELFPAY ==
--- NOTE | 2025-09-15 14:30 | MM_ITS ---
WS: [id number] BILATERAL 3D TOMOSYNTHESIS DIGITAL SCREENING MAMMOGRAPHY WITH CAD CLINICAL INFORMATION: SCREENING HISTORY: Screening mammogram. No current complaints. COMPARISON: 2023 TECHNIQUE: Bilateral CC and MLO views. FINDINGS: Scattered fibroglandular densities bilaterally. No suspicious focal mass, asymmetry, calcifications, or architectural distortion. No evidence of malignancy. MM/MM scr BI tomosynthesis [id number] IMPRESSION: DENSITY: There are scattered areas of fibroglandular density. BI-RADS: 1 - Negative. FOLLOW UP: 1 Year Follow-up Recommend return to annual screening mammography.
== END 2025-09-15 14:21 | disposition home or self-care (01) ==
PROVIDERS: PCP Internal Medicine; Visit Provider Internal Medicine
DX: Z12.31 Encounter for screening mammogram for malignant neoplasm of breast (principal); R92.323 Mammographic fibroglandular density, bilateral breasts
CPT/HCPCS: 77063; 77067

== ENCOUNTER 2025-09-24 07:43 | Outpatient (CLI) | payer BC, MEDICAID, SELFPAY ==
--- NOTE | 2025-09-24 07:45 | USCV_ITS ---
Christen French Age: 45 Gender: F : 1980 Exam Date: 09/24/2025 08:02 Ordering Phys: Amos Aranda MD ([email or web address]) Technologist: SEBASTIAN Exam Location: [facility] Indication: Syncope, CAD BP: 110 / 78 HR: 71 Rhythm: Sinus Technical Quality: Adequate MEASUREMENTS (Male / Female) Normal Values 2D ECHO LV Diastolic Diameter PLAX 4.5 cm 4.2 - 5.9 / 3.9 - 5.3 cm IVS Diastolic Thickness 0.6 cm 0.6 - 1.0 / 0.6 - 0.9 cm IVS Systolic Thickness 0.9 cm LVPW Diastolic Thickness 0.8 cm 0.6 - 1.0 / 0.6 - 0.9 cm LVPW Systolic Thickness 0.9 cm LVOT Diameter 1.9 cm LV Ejection Fraction 2D Teich 32.1 % LV Ejection Fraction MOD 4C 68.1 % LV Ejection Fraction MOD 2C 59.8 % LV Ejection Fraction 2C AL 61.7 % LA Diameter 3.3 cm RA Systolic Volume 4C AL 17.3 ml RA Systolic Volume 4C MOD 18.0 ml LA Sys Volume AL 36.4 cm cubed LA Sys Volume Index AL 17.3 cm cubed/m squared Aorta at Sinotubular Diameter 2.5 cm IVC Diameter 1.6 cm M-MODE LA Ao Ratio MM 1.1 AV Cusp Separation MM 1.6 cm DOPPLER AV Peak Velocity 144.0 cm/s LVOT Peak Velocity 105.0 cm/s AV Area Cont Eq vti 1.9 cm squared AV Area Cont Eq pk 2.1 cm squared MV Peak Velocity 101.0 cm/s MV Area PHT 5.1 cm squared Mitral E to A Ratio 0.9 TR Peak Velocity 95.0 cm/s TR Peak Gradient 3.6 mmHg TV Peak E Velocity 79.0 cm/s PV Peak Velocity 95.0 cm/s FINDINGS Left Ventricle Normal left ventricular size, systolic function and wall thickness, with no regional wall motion abnormalities. Left ventricular ejection fraction is estimated at 60 %. Normal diastolic function. Right Ventricle Normal right ventricular size and systolic function. Right Atrium Normal right atrial size. Left Atrium Normal left atrial size. IA Septum Normal appearance of the interatrial septum. Mitral Valve Mildly thickened mitral valve. No mitral valve stenosis. Trace mitral valve regurgitation. Aortic Valve Moderate aortic valve calcification. No aortic valve stenosis. Trace aortic valve regurgitation. Tricuspid Valve Normal tricuspid valve structure. No tricuspid valve stenosis or regurgitation. Normal pulmonary pressure. Pulmonic Valve Normal pulmonic valve structure. No pulmonic valve stenosis or regurgitation. Pericardium No pericardial effusion. Aorta Normal diameter of the aortic root and ascending thoracic aorta. IVC Normal IVC diameter. CONCLUSIONS Normal left ventricular size, systolic function and wall thickness, with no regional wall motion abnormalities. Left ventricular ejection fraction is estimated at 60 %. Normal diastolic function. No significant valvular abnormalities. There is no pericardial effusion. Right atrial pressure is around 5 mm of mercury. Amos Aranda MD (Electronically Signed) Final Date: 27 September 2025 15:16 S
== END 2025-09-24 07:44 | disposition home or self-care (01) ==
LOC: RAD 07:43
PROVIDERS: PCP Internal Medicine; Visit Provider Internal Medicine Cardiovascular Disease
DX: R55 Syncope and collapse (principal); I25.10 Atherosclerotic heart disease of native coronary artery without angina pectoris; I34.0 Nonrheumatic mitral (valve) insufficiency; I34.89 Other nonrheumatic mitral valve disorders; I35.1 Nonrheumatic aortic (valve) insufficiency; I35.8 Other nonrheumatic aortic valve disorders
CPT/HCPCS: 93306